=== PATIENT | male | born 1975 | race Two or more races ===

== ENCOUNTER 2017-06-06 07:54 | Emergency (ER) | payer SELFPAY ==
[~2017-06-06] VITALS: Ht 175.3 cm; Wt 83.9 kg
[2017-06-06 08:41] VITALS: BP 134/89
[2017-06-06] MEDS ORDERED: KETOROLAC TROMETH 60MG/2ML VIAL IM ONE (08:45)
[2017-06-06] MEDS ORDERED: METHOCARBAMOL 500 MG TAB PO ONE (08:45)
== END 2017-06-06 10:21 | disposition home or self-care (01) ==
LOC: ER 07:54
DX: S39.012A Strain of muscle, fascia and tendon of lower back, initial encounter (principal); Z87.442 Personal history of urinary calculi; X58.XXXA Exposure to other specified factors, initial encounter; Y93.89 Activity, other specified; Y99.8 Other external cause status; Y92.89 Other specified places as the place of occurrence of the external cause
CPT/HCPCS: 72131; 74176; 96372; 99284; J1885

== ENCOUNTER 2017-10-27 22:30 | Emergency (ER) | payer MEDICAID ==
[~2017-10-27] VITALS: Ht 175.3 cm; Wt 89.5 kg
[2017-10-28] MEDS ORDERED: SODIUM CHLORIDE 0.9% 1,000 ML IV ONE (03:15)
[2017-10-28] MEDS ORDERED: ONDANSETRON HCL 4 MG/2 ML VIAL IV ONE (03:15)
[2017-10-28] MEDS ORDERED: NALBUPHINE HCL 10 MG/1ml INJECTION IV ONE (03:15)
[2017-10-28 05:30] VITALS: BP 117/72
== END 2017-10-28 06:50 | disposition home or self-care (01) ==
LOC: ER 22:30
DX: N50.812 Left testicular pain (principal)
CPT/HCPCS: 72100; 74176; 76870; 96361; 96374; 96375; 99284; J2300; J2405; J7030

== ENCOUNTER 2019-05-19 21:27 | Emergency (ER) | payer MEDICAID ==
[~2019-05-19] VITALS: Ht 175.3 cm; Wt 88.5 kg
[2019-05-19 22:43] LABS: Basophils # (auto) 0 uL; Basophils % (auto) 0.4 % (0.0-2.0); Eosinophils # (auto) 0.2 uL; Eosinophils % (auto) 2.9 % (0.0-7.0); Hematocrit 48.3 % (41.0-53.0); Hemoglobin 16.7 g/dL (13.5-17.5); Lymphocytes # (auto) 1.9 uL; Lymphocytes % (auto) 31.8 % (10.0-50.0); Mean Corpuscular Hemoglobin 31.6 pg (28.0-32.0); Mean Corpuscular Hgb Conc. 34.7 g/dL (32.0-36.0); Mean Corpuscular Volume 91.2 fL (80.0-100.0); Monocytes # (auto) 0.5 uL; Monocytes % (auto) 7.9 % (0.0-12.0); Neutrophils # (auto) 3.4 uL; Nucleated Red Blood Cells % 0.1 %; Platelet Count (auto) 142 10^3/uL (140-450)
[2019-05-19 22:54] LABS: Albumin 4.3 g/dL (3.4-5.0); Anion Gap 5 (5-15); Aspartate Aminotransferase 70 U/L (15-37); BUN/Creatinine Ratio 13.4; Blood Urea Nitrogen 11 mg/dL (7-18); Carbon Dioxide 29 mmol/L (21-32); Chloride 106 mmol/L (98-107); GFR African American 131 mL/min; GFR Non-African American 108 mL/min; Glucose 129 mg/dL (74-106); Magnesium 2.5 mg/dL (1.6-2.6); Potassium 3.7 mmol/L (3.5-5.1); Sodium 140 mmol/L (136-145)
[2019-05-19 22:59] LABS: Alanine Aminotransferase 169 U/L (16-61); Alkaline Phosphatase 96 U/L (45-117); Bilirubin, Total 0.5 mg/dL (0.2-1.0); Total Protein 8.1 g/dL (6.4-8.2)
[2019-05-20 00:36] LABS: Urine Bacteria NONE SEEN /hpf (None Seen); Urine Blood TRACE /uL (Negative); Urine WBC 1 /hpf (0 - 3)
[2019-05-20 02:00] VITALS: BP 145/89
== END 2019-05-20 04:38 | disposition left against medical advice (07) ==
LOC: ER 21:31
DX: R07.2 Precordial pain (principal); Z53.21 Procedure and treatment not carried out due to patient leaving prior to being seen by health care provider
CPT/HCPCS: 36415; 71046; 80053; 81001; 83735; 84484; 85025; 93005

== ENCOUNTER 2022-03-23 19:06 | Emergency (ER) | payer MEDICAID ==
[~2022-03-23] VITALS: Ht 177.8 cm; Wt 90.9 kg
[2022-03-23 20:51] LABS: Urine Bacteria NONE SEEN /hpf (None Seen); Urine Blood 3+ /uL (Negative); Urine Specific Gravity 1.025 (1.001-1.035); Urine WBC 2 /hpf (0 - 3)
[2022-03-23 22:23] LABS: Basophils # (auto) 0 10 ^3/uL (0-0.2); Basophils % (auto) 0.3 % (0.0-2.0); Eosinophils # (auto) 0 10 ^3/uL (0-0.8); Eosinophils % (auto) 0.6 % (0.0-7.0); Hematocrit 48.2 % (41.0-53.0); Hemoglobin 15.9 g/dL (13.5-17.5); Lymphocytes # (auto) 1.2 10 ^3/uL (0.4-5.4); Lymphocytes % (auto) 18.9 % (10.0-50.0); Mean Corpuscular Volume 90.9 fL (80.0-100.0); Monocytes # (auto) 0.4 10 ^3/uL (0-1.3); Monocytes % (auto) 5.9 % (0.0-12.0); Neutrophils # (auto) 4.6 10 ^3/uL (1.6-8.6); Neutrophils % (auto) 74.3 % (37.0-80.0); Red Cell Distribution Width 13.2 % (11.8-14.3); White Blood Cell 6.2 10^3/uL (4.4-10.8)
[2022-03-23 22:42] LABS: Albumin 4.2 g/dL (3.4-5.0); Calcium 8.9 mg/dL (8.5-10.1); Potassium 4.7 mmol/L (3.5-5.1)
[2022-03-23 22:45] LABS: BUN/Creatinine Ratio 13.4; Bilirubin, Total 0.7 mg/dL (0.2-1.0); Total Protein 7.8 g/dL (6.4-8.2)
[2022-03-24] MEDS ORDERED: PERCOT PO ×2 (02:31→03:11)
[2022-03-24] MEDS ORDERED: ONDA-144 PO (02:31)
[2022-03-24] MEDS ORDERED: CIPR-173 PO (02:31)
[2022-03-24 02:40] VITALS: BP 142/90
[2022-03-24] MEDS ORDERED: TAM04C PO (03:11)
== END 2022-03-24 02:40 | disposition home or self-care (01) ==
LOC: ER 19:06
DX: N39.0 Urinary tract infection, site not specified (principal); N13.2 Hydronephrosis with renal and ureteral calculous obstruction
CPT/HCPCS: 36415; 71250; 74176; 80053; 81001; 83690; 85025

== ENCOUNTER 2022-03-25 11:10 | Inpatient (IN) | payer MEDICAID ==
[~2022-03-25] VITALS: Ht 177.8 cm; Wt 90.3 kg
[~2022-03-25 11:10] MED LIST: CIPR-173 PO; ONDA-144 PO; PERCOT PO; TAM04C PO
[2022-03-25 12:19] LABS: Basophils # (auto) 0 10 ^3/uL (0-0.2); Basophils % (auto) 0.4 % (0.0-2.0); Eosinophils # (auto) 0 10 ^3/uL (0-0.8); Eosinophils % (auto) 0.1 % (0.0-7.0); Hemoglobin 15.2 g/dL (13.5-17.5); Lymphocytes # (auto) 0.4 10 ^3/uL (0.4-5.4); Mean Corpuscular Hemoglobin 30.5 pg (28.0-32.0); Mean Corpuscular Hgb Conc. 33.8 g/dL (32.0-36.0); Mean Corpuscular Volume 90.2 fL (80.0-100.0); Monocytes # (auto) 0.2 10 ^3/uL (0-1.3); Monocytes % (auto) 2.1 % (0.0-12.0); Neutrophils # (auto) 7.4 10 ^3/uL (1.6-8.6); Neutrophils % (auto) 92.4 % (37.0-80.0); Red Blood Cells 4.99 10^6/uL (4.5-5.90); Red Cell Distribution Width 12.8 % (11.8-14.3)
[2022-03-25 12:25] LABS: Urine Bacteria FEW /hpf (None Seen); Urine Blood 3+ /uL (Negative); Urine Specific Gravity 1.027 (1.001-1.035); Urine WBC 4 /hpf (0 - 3)
[2022-03-25 12:37] LABS: Albumin 4.1 g/dL (3.4-5.0); BUN/Creatinine Ratio 11.3; Calcium 8.8 mg/dL (8.5-10.1)
[2022-03-25 12:39] LABS: Bilirubin, Total 1.2 mg/dL (0.2-1.0); Total Protein 7.7 g/dL (6.4-8.2)
[2022-03-25] MEDS ORDERED: KETOROLAC TROMETH 30 MG/ML 1ML VIAL IV ONE ×2 (14:00→17:30)
[2022-03-25] MEDS ORDERED: LACTATED RINGER'S 1,000 ML IV ONE (14:00)
[2022-03-25] MEDS ORDERED: MORPHINE SULFATE INJ 2 MG/ml SYRG IV PRN (16:30)
[2022-03-25] MEDS ORDERED: ACETAMINOPHEN 325 MG TAB PO PRN (16:30)
[2022-03-25] MEDS ORDERED: HYDROcodone-ACET 5/325MG TAB PO PRN (16:30)
[2022-03-25] MEDS ORDERED: ONDANSETRON HCL 4 MG/2 ML VIAL IV PRN (16:30)
[2022-03-25] MEDS: SODIUM CHLORIDE 0.9% 1,000 ML IV SCH (16:34)
[2022-03-25] MEDS ORDERED: TAMSULOSIN HYDROCHLORIDE 0.4 MG CAP PO ONE (17:30)
[2022-03-25] MEDS ORDERED: SODIUM CHLORIDE 0.9% 1,000 ML IV ONE (17:30)
[2022-03-25] MEDS ORDERED: MANNITOL FTV 25% 12.5 GM/50 ML 50 ML IV ONE (17:30)
[2022-03-25 21:33] VITALS: BP 136/83
[2022-03-25 22:41] VITALS: BP 136/83
[2022-03-26 05:12] VITALS: BP 115/69
[2022-03-26 06:05] LABS: Basophils # (auto) 0 10 ^3/uL (0-0.2); Basophils % (auto) 0.3 % (0.0-2.0); Eosinophils # (auto) 0.1 10 ^3/uL (0-0.8); Hematocrit 40.2 % (41.0-53.0); Hemoglobin 13.7 g/dL (13.5-17.5); Lymphocytes # (auto) 1.5 10 ^3/uL (0.4-5.4); Lymphocytes % (auto) 27.6 % (10.0-50.0); Mean Corpuscular Hemoglobin 30.7 pg (28.0-32.0); Mean Corpuscular Hgb Conc. 34.1 g/dL (32.0-36.0); Monocytes # (auto) 0.4 10 ^3/uL (0-1.3); Monocytes % (auto) 7.5 % (0.0-12.0); Neutrophils # (auto) 3.5 10 ^3/uL (1.6-8.6); Neutrophils % (auto) 63.6 % (37.0-80.0); Nucleated Red Blood Cells % 0.1 %; Red Blood Cells 4.46 10^6/uL (4.5-5.90); Red Cell Distribution Width 13.2 % (11.8-14.3); White Blood Cell 5.5 10^3/uL (4.4-10.8)
[2022-03-26 06:08] LABS: Albumin 3.4 g/dL (3.4-5.0); BUN/Creatinine Ratio 15.6; Calcium 8.1 mg/dL (8.5-10.1); Potassium 3.4 mmol/L (3.5-5.1)
[2022-03-26 06:10] LABS: Bilirubin, Total 1.2 mg/dL (0.2-1.0); Total Protein 6.5 g/dL (6.4-8.2)
[2022-03-26 08:00] VITALS: BP 109/70
[2022-03-26 09:00] VITALS: BP 109/70
[2022-03-26] MEDS: SODIUM CHLORIDE 0.9% 1,000 ML IV SCH ×2 (09:52→20:05)
[2022-03-26] MEDS ORDERED: KETOROLAC TROMETH 30 MG/ML 1ML VIAL IV PRN (10:15)
[2022-03-26] MEDS: ENOXAPARIN SOD 40 MG/0.4 ML SYRINGE SC SCH (10:32)
[2022-03-26] MEDS ORDERED: TAMSULOSIN HYDROCHLORIDE 0.4 MG CAP PO ONE (12:15)
[2022-03-26] MEDS ORDERED: cefTRIAXone 1GM/50ML D5W 50 ML IV ONE (12:15)
[2022-03-26 13:00] VITALS: BP 125/73
[2022-03-26 16:36] VITALS: BP 108/75
[2022-03-26 22:00] VITALS: BP 135/90
[2022-03-27] MEDS: SODIUM CHLORIDE 0.9% 1,000 ML IV SCH ×2 (03:43→09:38)
[2022-03-27 05:00] VITALS: BP 119/79
[2022-03-27 08:00] VITALS: BP 109/70
[2022-03-27] MEDS ORDERED: cefTRIAXone 1GM/50ML D5W 50 ML IV SCH (09:00)
[2022-03-27 09:02] VITALS: BP 127/89
[2022-03-27] MEDS: ENOXAPARIN SOD 40 MG/0.4 ML SYRINGE SC SCH (09:38)
[2022-03-27] MEDS ORDERED: TRAM50TA2 PO (10:41)
[2022-03-27] MEDS ORDERED: TAM04C PO (10:41)
[2022-03-27] MEDS ORDERED: CIPR-173 PO (10:41)
[2022-03-27 13:00] VITALS: BP 132/90
[2022-03-27] MEDS ORDERED: TAMSULOSIN HYDROCHLORIDE 0.4 MG CAP PO SCH (18:00)
== END 2022-03-27 14:26 | disposition home or self-care (01) | DRG 463 ==
LOC: ER 11:10 → EDBD 11:10 → OVERFLOW 16:22 → WEST WING 21:03
PROVIDERS: ADMIT Internal Medicine; ATTEND Family Medicine
DX: N13.6 Pyonephrosis (principal); E86.0 Dehydration; Z20.822 Contact with and (suspected) exposure to COVID-19; Z79.899 Other long term (current) drug therapy
CPT/HCPCS: 36415; 76775; 80053; 81001; 85025; 87081; G0378; J0696; J1885